=== PATIENT | male | born 1975 | race African-American/Black ===

== ENCOUNTER 2023-08-02 03:58 | Emergency (ER) | payer OTHER ==
[~2023-08-02] VITALS: Ht 177.8 cm; Wt 109.0 kg
[~2023-08-02 03:58] MED LIST: ALBUAER3 IN; DOXY-286 PO; PRED20TA2 PO
[2023-08-02 04:08] VITALS: BP 117/86; PULSE 105; RESP 20; TEMP 98.3
[2023-08-02] MEDS ORDERED: SILVER SULFADIAZINE 1 % TOPICAL CREAM 50GM TOP ONE (04:15)
[2023-08-02 06:26] VITALS: O2SAT 99
[2023-08-02] MEDS ORDERED: ACETAMINOPHEN 500 MG TAB PO ONE (06:45)
[2023-08-02] MEDS ORDERED: CEPH500C PO (06:56)
[2023-08-02] MEDS ORDERED: IBUP-1456 PO (06:56)
== END 2023-08-02 07:05 | disposition home or self-care (01) ==
LOC: ER 03:58
DX: T25.221A Burn of second degree of right foot, initial encounter (principal); Z79.1 Long term (current) use of non-steroidal anti-inflammatories (NSAID); Z79.2 Long term (current) use of antibiotics; Z79.899 Other long term (current) drug therapy; X15.8XXA Contact with other hot household appliances, initial encounter; Y93.89 Activity, other specified; Y92.89 Other specified places as the place of occurrence of the external cause; Y99.8 Other external cause status
CPT/HCPCS: 16020